=== PATIENT | male | born 1995 | race Caucasian/White ===

== ENCOUNTER 2016-11-24 19:32 | Emergency (ER) | payer OTHER, MEDICAID ==
[~2016-11-24] VITALS: Ht 188 cm; Wt 98.0 kg
[2016-11-24 19:40] VITALS: BP 123/85
== END 2016-11-24 22:45 | disposition left against medical advice (07) ==
LOC: ER 19:58
DX: N50.811 Right testicular pain (principal); Z53.21 Procedure and treatment not carried out due to patient leaving prior to being seen by health care provider